=== PATIENT | female | born 1960 | race Caucasian/White ===

== ENCOUNTER 2018-12-09 06:10 | Day surgery (SDC) | payer OTHER | END 2018-12-09 12:45 | disposition home or self-care (01) | LOC: ADM 06:10 → AMB-ENDOS 06:10 | DX: D12.8 Benign neoplasm of rectum (principal); K64.1 Second degree hemorrhoids ==

== ENCOUNTER 2019-12-24 06:15 | Day surgery (SDC) | payer OTHER | END 2019-12-24 12:50 | disposition home or self-care (01) | LOC: AMB-ENDOS 06:15 → ADM 14:00 → AMB-ENDOS 14:00 | PROVIDERS: ATTEND Colon & Rectal Surgery | DX: D12.8 Benign neoplasm of rectum (principal); K57.30 Diverticulosis of large intestine without perforation or abscess without bleeding; K64.1 Second degree hemorrhoids ==

== ENCOUNTER → 2020-02-11 | Day surgery (SDC) | payer OTHER | END | disposition home or self-care (01) | LOC: ADM 02-07 14:15 → AMB-ENDOS 07:00 → ADM 14:15 → AMB-ENDOS 14:15 | PROVIDERS: ATTEND Colon & Rectal Surgery | DX: D13.0 Benign neoplasm of esophagus (principal); K44.9 Diaphragmatic hernia without obstruction or gangrene ==